=== PATIENT | female | born 1985 | race Caucasian/White ===

== ENCOUNTER → 2021-07-02 | Outpatient (CLI) | payer BC ==
[~2021-07-02] MED LIST: COLACE 100MG C100 MG PO
[2021-07-02 10:17] LABS: HEMOGLOBIN 14.2 gm/dl (12.3-15.3); RED BLOOD COUNT 4.65 M/UL (4.00-5.10); WHITE BLOOD COUNT 3.8 K/UL (4.5-11.0)
[2021-07-02 10:46] LABS: BUN/CREATININE RATIO 12 (0-10)
[2021-07-03 08:13] LABS: PREALBUMIN 21 mg/dL (14-35); VITAMIN D, 25-HYDROXY 32.1 ng/mL (30.0-100.0)
[2021-07-06 16:13] LABS: VITAMIN E(ALPHA TOCOPHEROL) 7.1 mg/L (5.9-19.4); VITAMIN E(GAMMA TOCOPHEROL) 1.6 mg/L (0.7-4.9)
== END ==
LOC: LAB 09:03
PROVIDERS: Physician Assistant
DX: Z13.21 Encounter for screening for nutritional disorder (principal); R63.4 Abnormal weight loss; Z98.890 Other specified postprocedural states
CPT/HCPCS: 80053; 82728; 82746; 83540; 83735; 83921; 83970; 84100; 84134; 84425; 84443; 84446; 84590; 85027

== ENCOUNTER → 2021-11-03 | Outpatient (CLI) | payer BC ==
[2021-11-03 08:10] LABS: HEMOGLOBIN 13.3 gm/dl (12.3-15.3); RED BLOOD COUNT 4.49 M/UL (4.00-5.10); WHITE BLOOD COUNT 3.4 K/UL (4.5-11.0)
[2021-11-04 07:11] LABS: A/G RATIO 2.3 (1.2-2.2); ALKALINE PHOSPHATASE, S 55 IU/L (44-121); ALT (SGPT) 45 IU/L (0-32); AST (SGOT) 26 IU/L (0-40); BILIRUBIN, TOTAL 1.1 mg/dL (0.0-1.2); BUN 11 mg/dL (6-20); BUN/CREATININE RATIO 19 (9-23); CALCIUM, SERUM 9.1 mg/dL (8.7-10.2); CARBON DIOXIDE, TOTAL 22 mmol/L (20-29); CHLORIDE, SERUM 106 mmol/L (96-106); CREATININE, SERUM 0.59 mg/dL (0.57-1.00); EGFR IF AFRICN AM 138 (>59); EGFR IF NONAFRICN AM 120 (>59); GLOBULIN, TOTAL 1.9 g/dL (1.5-4.5); GLUCOSE, SERUM 85 mg/dL (65-99); PROTEIN, TOTAL, SERUM 6.2 g/dL (6.0-8.5); SODIUM, SERUM 143 mmol/L (134-144)
[2021-11-04 08:15] LABS: PREALBUMIN 20 mg/dL (14-35)
[2021-11-04 09:15] LABS: VITAMIN D, 25-HYDROXY 31.8 ng/mL (30.0-100.0)
== END ==
LOC: LAB 06:50
PROVIDERS: Nurse Practitioner Family
DX: E66.9 Obesity, unspecified (principal)
CPT/HCPCS: 36415; 80053; 80061; 82728; 82746; 83036; 83540; 83735; 83921; 83970; 84100; 84134; 84425; 84443; 84446; 84590; 85027